=== PATIENT | male | born 1975 | race Hispanic/Latino ===

== ENCOUNTER → 2025-08-07 | Outpatient (CLI) | payer BC ==
--- NOTE | 2025-08-08 05:36 | HMCIMG ---
EXAM: MRI Lumbar Spine Without Contrast CLINICAL INDICATION: Low back pain, unspecified. TECHNIQUE: Multiplanar, multisequence MRI of the lumbar spine was performed without intravenous contrast, with standardized sagittal and axial evaluation. COMPARISON: No prior MRI studies are available for comparison.FINDINGS: Alignment: The lumbar lordosis is reduced. There is mild grade I degenerative spondylolisthesis of L4 over L5 without evidence of pars interarticularis defect or spondylolysis.Vertebral Bodies and Endplates: Vertebral body heights are preserved. Small anterior marginal osteophytes are present at all lumbar levels. Minimal Modic type II endplate marrow signal change is seen along the superior endplate of L1, classified using the Modic endplate classification system. The remaining vertebral marrow signal is unremarkable.Discs: Disc desiccative changes are present at L3-L4 and L4-L5 levels. Disc degeneration is graded using the Pfirrmann classification system and detailed at each level below.Facet Joints and Ligamentum Flavum: Multilevel facet arthropathy is present, graded using the Weishaupt facet joint classification system. Facet joint edema is identified at the L4-L5 level without associated synovial cyst formation. Ligamentum flavum thickening is present at L4-L5.Spinal Canal and Neural Elements: Central canal and neural foraminal stenosis are graded using the Jacques classification system. Traversing and exiting nerve root relationships are described at each level. The conus medullaris is normal in signal and morphology and terminates at the T12 level. No compression of the conus medullaris or cauda equina is identified.[id number] ANALYSIS:T12-L1: Disc demonstrates preserved height and signal, consistent with Pfirrmann grade I degeneration without focal herniation. No Modic endplate changes are present. The central canal is widely patent, Jacques grade 0. The lateral recesses are patent without traversing nerve root involvement. The neural foramina are patent bilaterally, Jacques grade 0. The facet joints demonstrate bilateral Weishaupt grade I facet arthropathy without ligamentum flavum thickening.L1-L2: Disc shows a small central disc herniation with early degenerative changes, Pfirrmann grade II. No Modic endplate changes are identified. There is mild central canal narrowing, Jacques grade I. The lateral recesses remain patent without traversing L2 nerve root involvement. The neural foramina are patent bilaterally, Jacques grade 0. Bilateral Weishaupt grade I facet arthropathy is present.L2-L3: Disc demonstrates a small central and bilateral paracentral disc protrusion with foraminal extension, corresponding to Pfirrmann grade II degeneration. No Modic endplate changes are seen. There is mild central canal narrowing, Jacques grade I. Minimal bilateral lateral recess narrowing is present without contact or compression of the traversing L3 nerve roots. Mild bilateral neural foraminal narrowing is present, Jacques grade I, without exiting nerve root compression. Mild bilateral facet arthropathy is noted, Weishaupt grade I.L3-L4: Disc shows disc desiccation and loss of height consistent with Pfirrmann grade III degeneration. A central, bilateral paracentral, and foraminal disc protrusion is present, asymmetric and more pronounced on the right. No Modic endplate changes are present. Mild central canal narrowing is seen, Jacques grade I. The lateral recesses are mildly narrowed without traversing nerve root compression. The right neural foramen demonstrates Jacques grade II stenosis with impingement of the exiting right L3 nerve root. The left neural foramen shows Jacques grade I narrowing without exiting nerve root compression. Right-sided Weishaupt grade III facet arthropathy is present, with left-sided Weishaupt grade II facet arthropathy and mild ligamentum flavum thickening.L4-L5: Disc demonstrates disc desiccation consistent with Pfirrmann grade III degeneration and a circumferential grade I pseudobulge. No Modic endplate changes are identified. Mild central canal stenosis is present, Jacques grade I, compounded by ligamentum flavum thickening. Bilateral lateral recess narrowing is present with impingement of the traversing L5 nerve roots bilaterally. The neural foramina demonstrate Jacques grade II stenosis bilaterally, more pronounced on the right, with compression of the exiting right L4 nerve root. Bilateral Weishaupt grade II facet arthropathy is present with associated facet joint edema and ligamentum flavum hypertrophy.L5-S1: Disc shows a small central disc protrusion with preserved disc height, Pfirrmann grade II. No Modic endplate changes are present. The central canal remains patent, Jacques grade 0. No lateral recess stenosis is identified. Mild bilateral neural foraminal narrowing is present, Jacques grade I, related to hypertrophied facet joints, without exiting nerve root compression. Bilateral Weishaupt grade II facet arthropathy is present.IMPRESSION: * Degenerative spondylolisthesis of L4-L5 with Pfirrmann grade III disc degeneration, bilateral lateral recess stenosis causing impingement of the traversing L5 nerve roots, and bilateral Jacques grade II neural foraminal stenosis with compression of the exiting right L4 nerve root, representing the most clinically significant level. * L3-L4 degenerative disc disease with asymmetric right-sided disc protrusion and right-sided Jacques grade II neural foraminal stenosis causing impingement of the exiting right L3 nerve root. * Multilevel lumbar spondylosis with disc degeneration at L1-L2 through L5-S1, mild central canal narrowing at L1-L2 through L4-L5 (Jacques grade I), and associated facet arthropathy. * Minimal Modic type II endplate change at the L1 superior endplate without additional aggressive marrow abnormality. * No compression of the conus medullaris or cauda equina. /Lacey
== END | disposition home or self-care (01) ==
LOC: RAH 15:04
PROVIDERS: ATTEND Nurse Practitioner Family
DX: M47.817 Spondylosis without myelopathy or radiculopathy, lumbosacral region (principal); M47.816 Spondylosis without myelopathy or radiculopathy, lumbar region; M51.370 Other intervertebral disc degeneration, lumbosacral region with discogenic back pain only; M48.07 Spinal stenosis, lumbosacral region; M51.27 Other intervertebral disc displacement, lumbosacral region
CPT/HCPCS: 72148